=== PATIENT | male | born 1955 ===

== ENCOUNTER 2023-07-27 10:08 | Inpatient (IN) ==
[~2023-07-27 10:08] MED LIST: Ertapenem 1 GM in NS 0.9% 50 ML BAG IVPB SCH; Lidocaine 4 MG/ML IV PREMIX 2,000 MG/500 ML BAG IV ONE; Naloxone 0.4 mg VIAL 0.4 mg/ml 1 ml VIAL IV PRN; Ondansetron 4 mg VIAL 2 MG/ML 2 ml VIAL IV PRN
[2023-07-27] MEDS ORDERED: Heparin 5000 UNITS/ML 1 mL VIAL ONE (10:31)
[2023-07-27] MEDS ORDERED: Scopolamine 1 mg/72hr PATCH ONE (10:31)
[2023-07-27] MEDS ORDERED: Buffered Lidocaine 1% SYRIN 1 ml ONE (10:31)
[2023-07-27 10:54] LABS: Rapid COVID-19 Molecular Undetected (Undetected)
[2023-07-27] MEDS: Buffered Lidocaine 1% SYRIN 1 ml INTRADERM ONE (10:55)
[2023-07-27] MEDS: Scopolamine 1 mg/72hr PATCH TRANSDERM ONE (10:57)
[2023-07-27] MEDS ORDERED: Propofol 10 MG/ML 20 ML BTL ONE (11:49)
[2023-07-27] MEDS ORDERED: Lidocaine 2% PF 5 ML VIAL ONE (11:49)
[2023-07-27] MEDS ORDERED: Phenylephrine 40 mcg/mL 10mL (400mcg) SYRINGE ONE (11:49)
[2023-07-27] MEDS ORDERED: Rocuronium 50 mg VIAL 10 mg/ml 5 ml VIAL (50 mg) ONE (11:49)
[2023-07-27] MEDS ORDERED: fentaNYL 100 mcg/2 ml 50 MCG/ML VIAL ONE ×4 (11:50→16:03)
[2023-07-27] MEDS ORDERED: Midazolam 2 mg/2 ml VIAL 1 mg/ml 2 ml VIAL (2 mg) ONE (11:50)
[2023-07-27] MEDS ORDERED: Bupivacaine 0.25% EPI 200,000 30 ML SDV ONE (12:24)
[2023-07-27] MEDS ORDERED: Albumin Human 5% 12.5 GM/250 ML BTL IV ONE (12:30)
[2023-07-27] MEDS ORDERED: KETAMINE HCL 10 MG/ML 20 ml VIAL (200 MG) ONE (13:42)
[2023-07-27] MEDS ORDERED: Dexamethasone IV 4 MG/ML VIAL 1 ml VIAL ONE (15:20)
[2023-07-27] MEDS ORDERED: Ondansetron 4 mg VIAL 2 MG/ML 2 ml VIAL ONE (15:20)
[2023-07-27] MEDS ORDERED: Ondansetron 4 mg VIAL 2 MG/ML 2 ml VIAL IV PRN (15:56)
[2023-07-27] MEDS ORDERED: Calcium Carb (TUMS) 500 mg CHEW TAB PO PRN (16:00)
[2023-07-27] MEDS: fentaNYL 100 mcg/2 ml 50 MCG/ML VIAL IV PRN (16:06)
[2023-07-27] MEDS ORDERED: HYDROmorphone 1 MG/1 ML SYRINGE ONE (16:29)
[2023-07-27] MEDS: HYDROmorphone 1 MG/1 ML SYRINGE IV SLOW PU PRN (16:30)
[2023-07-27] MEDS: Lactated Ringers 1000 ml BAG 1,000 ML IV SCH ×2 (18:19→18:25)
[2023-07-27] MEDS: Heparin 5000 UNITS/ML 1 mL VIAL SUBCUT SCH (21:48)
[2023-07-28] MEDS: HYDROmorphone 0.5 MG/0.5 ML SYRINGE IV SLOW PU PRN (09:40)
[2023-07-28] MEDS ORDERED: HYDROmorphone 1 MG/1 ML SYRINGE IV SLOW PU PRN (10:17)
[2023-07-28 12:12] LABS: Hematocrit 28.8 % (38-53); Hemoglobin 8.9 g/dL (13.2-16.3); Mean Corpuscular Hemoglobin 22.1 pg (27-33); Mean Corpuscular Hgb Conc 30.9 g/dL (31-36); Mean Corpuscular Volume 71.5 fL (80-97); Mean Platelet Volume 7.5 fL (7.5-11.2); Platelet Count 281 10^3/uL (150-450); Red Blood Count 4.03 10^6/uL (4.06-5.63)
[2023-07-28 12:48] LABS: ABS Lymphocytes 0.4 10^3/uL (1.0-4.8); ABS Monocytes 0.4 10^3/uL (0.0-1.1); ABS Neutrophils 5.2 10^3/uL (1.5-7.6); Anisocytosis 2+; Eosinophil % 0.3 %; Hypochromasia 2+; Lymphocyte % 6.3 %; Microcytosis 1+; Tear Drop Cells 1+
[2023-07-28 12:54] LABS: Calcium 7.8 mg/dL (8.6-10.3); Creatinine, Serum 0.78 mg/dL (0.67-1.17); Potassium 4.6 mmol/L (3.5-5.0)
[2023-07-31 13:35] VITALS: BP 127/74
== END 2023-07-31 16:50 | disposition home or self-care (01) | DRG 330 ==
LOC: AA 10:08 → SSU 15:56
PROVIDERS: ADMIT Surgery; ATTEND Surgery